=== PATIENT | male | born 1945 | race Caucasian/White ===

== ENCOUNTER 2021-07-19 18:41 | Emergency (ER) | payer MEDICARE, MEDICAID ==
[~2021-07-19] VITALS: Ht 157.5 cm; Wt 58.4 kg
[2021-07-19 20:05] VITALS: BP 183/95
[2021-07-19 21:16] LABS: CLARITY URINE CLOUDY (CLEAR); COLOR URINE YELLOW (YELLOW); KETONES URINE NEGATIVE (NEGATIVE); LEUKOCYTE ESTERASE URINE 3+ (NEGATIVE); NITRITE URINE NEGATIVE (NEGATIVE); OCCULT BLOOD URINE TRACE (NEGATIVE); PROTEIN URINE NEGATIVE (NEGATIVE); SPECIFIC GRAVITY URINE 1.006 (1.005-1.030); UROBILINOGEN URINE 0.2 E.U./dL (0.2-1.0)
[2021-07-19] MEDS ORDERED: NITR-87 MT (21:40)
== END 2021-07-19 21:56 | disposition home or self-care (01) ==
LOC: ER 18:41
DX: R33.9 Retention of urine, unspecified (principal); I10 Essential (primary) hypertension; Z85.46 Personal history of malignant neoplasm of prostate; Z98.890 Other specified postprocedural states
CPT/HCPCS: 81003; 87077; 87186; 99283; A4315